=== PATIENT | female | born 1970 | race Caucasian/White ===

== ENCOUNTER 2023-08-26 20:11 | Emergency (ER) | payer OTHER, SELFPAY ==
[2023-08-26 20:13] VITALS: BP 212/106; BMI 30.1
[2023-08-26 22:17] LABS: Urine Albumin Negative (Neg - Trace); Urine Bilirubin Negative (Negative); Urine Character Clear (Clear); Urine Color Yellow; Urine Glucose Negative (Negative); Urine Ketone Negative (Negative); Urine Leukocyte Negative (Negative); Urine Nitrite Negative (Negative); Urine Occult Blood Negative (Negative); Urine Urobilinogen Negative (Neg - 1+); Urine pH 6.5 (5.0-9.0)
[2023-08-26 22:19] LABS: % Basophils 0.4 % (0-2); % Eosinophils 1.2 % (0-6); % Immature Granulocytes 0.1 % (0-0.5); % Monocytes 7.4 % (1.7-9.3); % Neutrophils 73.9 % (42.2-75.2); Absolute Eosinophils 0.1 10^3/uL (0-0.7); Absolute Lymphocytes 1.4 10^3/uL (1.2-3.4); Absolute Monocytes 0.6 10^3/uL (0.1-0.6); Absolute Neutrophils 6.1 10^3/uL (1.4-6.5); Hematocrit 38.8 % (37.0-47.0); Mean Corp Hgb Conc. 36.1 g/dL (33.0-37.0); Mean Corpuscular Hgb 31.6 pg (27.0-31.0); Mean Corpuscular Volume 87.6 fL (81.0-99.0); Mean Platelet Volume 8.6 fL (7.4-10.4); Nucleated Red Blood Cells % 0 %; Platelet Count 204 10^3/uL (130-400); Red Blood Cell Count 4.43 10^6/uL (4.20-5.40); Red Cell Dist. Width 12.5 % (11.5-14.5); White Blood Cell Count 8.2 10^3/uL (4.8-10.8)
[2023-08-26 22:29] LABS: HCG, Serum Qualitative Screen Negative
[2023-08-26 22:38] LABS: ALT (SGPT) 16 U/L (0-35); AST (SGOT) 22 U/L (14-36); Albumin 4.5 g/dl (3.5-5.0); Alkaline Phosphatase 71 U/L (38-126); Blood Urea Nitrogen 8 mg/dl (7-17); Calcium 8.8 mg/dl (8.4-10.2); Carbon Dioxide 25 mmol/L (22-30); Chloride 106 mmol/L (98-107); Estimated Creatinine Clearance > 125 ml/min; Glucose 102 mg/dl (70-99); Lipase 42 U/L (23-300); Potassium 4.1 mmol/L (3.5-5.1); Sodium 136 mmol/L (135-145); Total Bilirubin 0.7 mg/dl (0.2-1.3); Total Protein 7.2 g/dl (6.3-8.2); eGFR > 60.00
[2023-08-26 23:08] VITALS: BP 135/84
--- NOTE | 2023-08-26 23:25 | ED.GENMED ---
History of Present Illness
General
Chief Complaint: Abdominal Pain
Time Seen by Provider: 08/26/23 22:35
Travel History
Have you had any contact with someone who has COVID-19?: No
Do you have any symptoms of coronavirus? Fever > 100 degrees, chills, cough, shortness of breath, sore throat, loss of taste or smell, muscle aches, or headache?: No
History of Present Illness
History of Present Illness:
53-year-old female with no significant past medical history presents the emergency department for evaluation of left lower quadrant pain developing this morning. Pain is gradually worsened throughout the day despite taking NSAIDs. Denies any
associated nausea or vomiting. Denies any lower urinary tract voiding symptoms, fevers, or chills. Prior abdominal surgery includes cholecystectomy and
Past History
Past History
ED Past Medical History: HTN
ED Past Surgical History: Cholecystectomy and
Social History
Tobacco: Non-smoker
Alcohol: None
Personal:
Living: with family
Family History
Family History: Other (Reviewed and noncontributory)
Review of Systems
Review of Systems
Allergies reviewed?: Yes
All Other Systems: ROS reviewed and negative except as documented in HPI and ROS
Phy Exam
Physical Exam
Physical Exam:
GEN: Well appearing, NAD, WDWN
HEENT: Oral mucosa moist, no scleral icterus
Cardiac: Regular rate
Lung: No respiratory distress, no tachypnea
Abdomen: Soft, nondistended, severe tenderness to left lower quadrant, no rebound tenderness, no rigidity
MSK: No gross deformity or injuries
Skin: Good color, no pallor or jaundice, no rashes
Neuro: AO x3, moves all extremities freely
Psych: Calm, cooperative
Course
Orders/Labs/Results
Orders:
Orders
08/26/23 22:02
Test Result ONCE
08/26/23 22:03
Complete Blood Count/With Diff Urgent
Comprehensive Metabolic Panel Urgent
HCG, Serum Qualitative Screen Urgent
Lipase Urgent
08/26/23 22:06
Urinalysis Reflex To Culture Urgent
Date Specimen was Collected: 08/26/23
Time Specimen was Collected: 22:02
08/26/23 22:56
CT Abd/Pel (IV only)-DH only Urgent
Comment:
Reason For Exam: LLQ pain
08/26/23 23:58
Ketorolac [Toradol] 15 mg IV NOW STA
08/27/23 00:01
Amoxicillin 875 mg/Clav 125 mg [Augmentin 875 mg/125 mg] 1 tablet PO NOW STA
Abnormal Lab Results
08/26/23
22:03
MCH 31.6 H pg
(27.0-31.0)
Lymphocytes % 17.0 L %
(20.5-51.1)
Creatinine 0.5 L mg/dL
(0.6-1.0)
Glucose 102 H mg/dl
(70-99)
08/26/23 22:03
08/26/23 22:03
Vital Signs
Initial and Last Documented VS:
Initial Vital Signs
Temp Pulse Resp BP Pulse Ox
98 F 91 16 212/106 98
08/26/23 20:13 08/26/23 20:13 08/26/23 20:13 08/26/23 20:13 08/26/23 20:13
Last Documented Vital Signs
Temp Pulse Resp BP Pulse Ox
98 F 82 18 135/84 99
08/26/23 20:13 08/27/23 00:32 08/27/23 00:32 08/26/23 23:08 08/27/23 00:32
MDM/Problems Addressed
MDM/Problems Addressed:
Labs are reassuring and urinalysis rules out UTI. CT confirms the suspected diagnosis of acute diverticulitis. No complicating factors such as perforation or abscess. Will start the patient on clear liquid diet and antibiotic therapy, discussed
ED return parameters
*Critical Care Note
Total Time (30-74mins, 75-104mins- exclusive of procedures): Not Applicable
ED Attending Note
-
Portions of this chart may have been created with voice recognition software.� Occasional wrong word or��sound alike� substitutions may have occurred due to the inherent limitations of voice recognition software.
Discharge Plan
Departure
Patient Disposition: Home (Routine Discharge)
Date of Disposition: 08/27/23
Time of Disposition: 00:08
Patient with high blood pressure during this ER visit?: No
Discharge Problem:
Acute diverticulitis
Instructions: High Fiber Diet, Clear Liquid Diet, Diverticulitis (DC)
Prescriptions:
New
amoxicillin-pot clavulanate 875-125 mg tablet
1 tab PO BID Qty: 20 0RF
No Action
ibuprofen 600 MG tablet
600 mg PO PRN PRN (Reason: pain/ fever)
vitamin D3-vitamin K2 (MK4) [K2 Plus D3] 1 EACH tablet
1 ea PO DAILY
acetaminophen 325 MG tablet
650 mg PO Q4HPRN PRN (Reason: HUERTA, mild pain, or temp >100.4F) 0RF
cyclobenzaprine 10 mg tablet
10 mg PO HS PRN (Reason: Muscle spasm) Qty: 7 0RF
prednisone 20 mg tablet
20 mg PO DAILY Qty: 4 0RF
Referrals:
Melba Lopez MD [Active] -
UNKNOWN - PT NOT,INTERVIEWE [Unknown Provider] -
Activity Restrictions/Additional Instructions:
Clear liquids only for the next 48 to 72 hours, after completion of the antibiotics when your symptoms have improved you may begin a high-fiber diet 25 to 35 g of fiber daily
Follow-up with gastroenterology in 6 to 8 weeks
Interventions
Interventions:
*Risk Screen - Suicide Last Done: 08/26/23 20:13
*General Assessment Last Done: 08/27/23 00:32
*Neglect/Abuse Screening Last Done: 08/26/23 20:13
ED- Fall Risk Assessment Last Done: 08/26/23 23:10
*ED COVID-19 Vaccine History Last Done: 08/26/23 20:13
*Nursing Disposition Last Done: 08/27/23 00:32
QY-Omxmxe-Tsmizgdojn Assessment Last Done: 08/26/23 23:08
Discharge Date and Time
Discharge Date/Time: 08/27/23 00:33
[2023-08-27] MEDS: TORADOL 15 MG IV (00:06)
[2023-08-27] MEDS: AUGMENTIN 875 MG/125 MG 1 TABLET PO (00:06)
== END 2023-08-27 00:33 | disposition home or self-care (01) ==
LOC: EMR 20:11
PROVIDERS: Emergency Medicine; EMERGENCY PHYSICIAN Emergency Medicine; FAMILY PHYSICIAN Family Medicine
DX: K57.92 Diverticulitis of intestine, part unspecified, without perforation or abscess without bleeding (principal); I10 Essential (primary) hypertension; Z90.49 Acquired absence of other specified parts of digestive tract
CPT/HCPCS: 99285; 96374; 74177; 80053; 81003; 83690; 84703; 85025; Q9967